=== PATIENT | female | born 1985 | race American Indian/Alaskan Native ===

== ENCOUNTER 2017-04-22 20:43 | Emergency (ER) | payer MEDICAID ==
[2017-04-22 20:53] VITALS: BP 114/85
[2017-04-22 21:37] LABS: Basophils % (Auto) 0.5 % (0.0-1.8); Eosinophils % (Auto) 6.5 % (0.0-4.3); Hemoglobin 12.9 gm/dl (10.1-14.3); Mean Corpuscular HGB Conc 34 % (30-34); Mean Corpuscular Hemoglobin 31 pg (28-32); Mean Corpuscular Volume 90 fl (79-97); Platelet Count 372 K/mm3 (140-440); Red Cell Distribution Width 13.4 % (13.2-15.2); White Blood Count 6.8 K/mm3 (4.5-11.0)
== END 2017-04-23 00:30 | disposition left against medical advice (07) ==
LOC: ED 20:43
DX: N93.9 Abnormal uterine and vaginal bleeding, unspecified (principal); Z53.21 Procedure and treatment not carried out due to patient leaving prior to being seen by health care provider
CPT/HCPCS: 36415; 84702; 85025; 86850; 86900; 86901

== ENCOUNTER 2017-04-23 20:45 | Emergency (ER) | payer SELFPAY ==
[2017-04-23 21:47] LABS: Basophils % (Auto) 0.6 % (0.0-1.8); Eosinophils % (Auto) 6.8 % (0.0-4.3); Hematocrit 36.5 % (30.3-42.9); Hemoglobin 12.3 gm/dl (10.1-14.3); Mean Corpuscular HGB Conc 34 % (30-34); Mean Corpuscular Hemoglobin 30 pg (28-32); Mean Corpuscular Volume 90 fl (79-97); Platelet Count 363 K/mm3 (140-440); Red Blood Count 4.08 M/mm3 (3.65-5.03); Red Cell Distribution Width 13.4 % (13.2-15.2); White Blood Count 6.5 K/mm3 (4.5-11.0)
--- NOTE | 2017-04-24 10:51 | Emergency Department Report ---
ED Female HPI - General Chief complaint: Vaginal Bleeding Stated complaint: VAGINAL BLEEDING Time Seen by Provider: 04/24/17 10:50 Source: patient, RN notes reviewed Mode of arrival: Ambulatory Limitations: No Limitations - History of Present Illness Initial comments: This is a 31-year-old female who is previously unknown to this provider, she is 7, para 2, last menstrual period is March 22. Patient seen at this hospital a few days ago for vaginal bleeding, quantitative hCG was 9, patient eloped. Patient then presents to the ER again with a complaint of spotting, cramping, vaginal bleeding. Denies headache, neck pain, chest pain, shortness of breath, urinary symptoms. Her symptoms do not radiate anywhere, they do not have exacerbating or relieving factors. MD Complaint: vaginal bleeding -: Gradual, days(s) Location: suprapubic Radiation: non-radiating Severity: mild Quality: cramping Consistency: intermittent Improves with: none Worsens with: none Are you Now?: Yes Associated Symptoms: vaginal bleeding. denies: vaginal discharge, nausea/ vomiting, fever/chills, dysuria, shortness of breath, syncope, weakness - Related Data Sexually active: Yes Previous Rx's Medication Instructions Recorded Last Taken Type Nitrofurantoin [place]/M-Cryst 100 mg PO Q12HR #14 capsule 03/11/14 Unknown Rx [Macrobid] Ondansetron [Zofran Odt] 4 mg PO Q6H #10 tab.rapdis 03/11/14 Unknown Rx Allergies Allergy/AdvReac Type Severity Reaction Status Date / Time No Known Allergies Allergy Verified 04/23/17 21:05 ED Review of Systems ROS: Stated complaint: VAGINAL BLEEDING Other details as noted in HPI Constitutional: denies: fever Eyes: denies: vision change ENT: denies: epistaxis Respiratory: denies: cough Cardiovascular: denies: chest pain Gastrointestinal: denies: abdominal pain Genitourinary: abnormal menses Musculoskeletal: denies: back pain Skin: denies: lesions Neurological: denies: headache Psychiatric: anxiety ED Past Medical Hx - Past Medical History Previous Medical History?: No - Surgical History Past Surgical History?: No - Social History Smoking Status: Never Smoker Substance Use Type: Alcohol - Medications Home Medications: Home Medications Medication Instructions Recorded Confirmed Last Taken Type Nitrofurantoin [place]/M-Cryst 100 mg PO Q12HR #14 capsule 03/11/14 Unknown Rx [Macrobid] Ondansetron [Zofran Odt] 4 mg PO Q6H #10 tab.rapdis 03/11/14 Unknown Rx ED Physical Exam - General Limitations: No Limitations General appearance: alert, in no apparent distress - Head Head exam: Present: atraumatic, normocephalic - Eye Eye exam: Present: normal appearance, EOMI. Absent: nystagmus - ENT ENT exam: Present: normal exam, normal orophraynx, mucous membranes moist, normal external ear exam - Neck Neck exam: Present: normal inspection, full ROM - Respiratory Respiratory exam: Present: normal lung sounds bilaterally. Absent: respiratory distress - Cardiovascular Cardiovascular Exam: Present: regular rate, normal rhythm, normal heart sounds. Absent: systolic murmur, diastolic murmur, rubs, gallop - GI/Abdominal GI/Abdominal exam: Present: soft, normal bowel sounds. Absent: distended, tenderness, guarding, rebound, rigid, pulsatile mass - Extremities Exam Extremities exam: Present: normal inspection, full ROM, normal capillary refill. Absent: pedal edema, joint swelling, calf tenderness - Back Exam Back exam: Present: normal inspection, full ROM. Absent: tenderness, CVA tenderness (R), paraspinal tenderness, vertebral tenderness - Neurological Exam Neurological exam: Present: alert, oriented X3, CN II-XII intact, other ( Extraocular movements intact. Tongue midline. No facial droop. Facial sensation intact to light touch in the V1, V2, V3 distribution bilaterally. 5 and 5 strength in 4 extremities.. Sensation is intact to light touch in 4 extremities.). Absent: motor sensory deficit - Psychiatric Psychiatric exam: Present: normal affect, normal mood - Skin Skin exam: Present: warm, dry, intact, normal color. Absent: rash ED Course Vital Signs 04/23/17 04/24/17 04/24/17 21:05 01:37 09:58 Temperature 99.2 F 98.5 F Pulse Rate 98 H 89 Respiratory 18 16 Rate Blood Pressure 113/71 114/75 120/73 O2 Sat by Pulse 99 100 Oximetry 04/24/17 04/24/17 10:00 10:30 Temperature Pulse Rate 92 H 88 Respiratory 18 18 Rate Blood Pressure 112/73 104/73 O2 Sat by Pulse 100 99 Oximetry - Reevaluation(s) Reevaluation #1: 04/24/17 12:43 Differential diagnosis, including without limited to: Urinary tract infection, miscarriage, temperature conception, ectopic Assessment and plan: 31-year-old female who is with vaginal bleeding, quantitative hCG a few days ago was 9, today it is 3, history and physical most likely suggestive of miscarriage. Pelvic ultrasound pending, Rh+, does not require RhoGAM, urinalysis pending at this time. Reevaluation #2: 04/24/17 12:54 As expected, urinalysis not consistent with urinary tract infection, and pelvic ultrasound physiologic with no evidence of ectopic or retained product of conception. Patient declined a gynecologic examination, she will follow up with outpatient gynecology for this. ED Medical Decision Making - Lab Data Result diagrams: 04/23/17 21:23 Vital Signs 04/23/17 04/24/17 04/24/17 21:05 01:37 09:58 Temperature 99.2 F 98.5 F Pulse Rate 98 H 89 Respiratory 18 16 Rate Blood Pressure 113/71 114/75 120/73 O2 Sat by Pulse 99 100 Oximetry 04/24/17 04/24/17 10:00 10:30 Temperature Pulse Rate 92 H 88 Respiratory 18 18 Rate Blood Pressure 112/73 104/73 O2 Sat by Pulse 100 99 Oximetry Lab Results 04/23/17 04/23/17 04/23/17 Range/Units 21:23 21:27 21:30 WBC 6.5 (4.5-11.0) K/mm3 RBC 4.08 (3.65-5.03) M/mm3 Hgb 12.3 (10.1-14.3) gm/dl Hct 36.5 (30.3-42.9) % MCV 90 (79-97) fl MCH 30 (28-32) pg MCHC 34 (30-34) % RDW 13.4 (13.2-15.2) % Plt Count 363 (140-440) K/mm3 Lymph % (Auto) 41.0 H (13.4-35.0) % [place] % (Auto) 6.8 (0.0-7.3) % Eos % (Auto) 6.8 H (0.0-4.3) % Baso % (Auto) 0.6 (0.0-1.8) % Lymph # 2.7 (1.2-5.4) K/mm3 [place] # 0.4 (0.0-0.8) K/mm3 Eos # 0.4 (0.0-0.4) K/mm3 Baso # 0.0 (0.0-0.1) K/mm3 Seg Neutrophils % 44.8 (40.0-70.0) % Seg Neutrophils # 2.9 (1.8-7.7) K/mm3 HCG, Quant 3.59 (0-4) mIU/mL Blood Type O POSITIVE Antibody Screen Negative - Radiology Data Radiology results: pending [facility] [address] [place] [address] Ultrasound Report Signed Patient: YASMINE HINKLE MR#: [id number] : 1985 Acct:[id number] Age/Sex: 31 / F ADM Date: 04/23/17 Loc: ED Attending Dr: Ordering Physician: CHUY LAMAS MD Date of Service: 04/24/17 Procedure(s): US transvaginal Accession Number(s): [id number] cc: CHUY LAMAS MD ULTRASOUND PELVIS COMPLETE - TRANSABDOMINAL AND TRANSVAGINAL: INDICATION: Vaginal bleeding, miscarriage. Evaluate for retained products of conception. COMPARISON: None similar. FINDINGS: Transabdominal and transvaginal pelvic sonography demonstrates a 9.5 x 4.6 x 6.8 cm homogenous, anteverted uterus. Endometrial thickness of 0.4 cm toward the fundus, endovaginal image 5. Small, 6 mm nabothian cyst. No significant free fluid. Right ovary is 4.4 x 1.8 x 3.5 cm while the left ovary is 2.6 x 1.6 x 3.3 cm. Small bilateral physiologic follicles measuring up to approximately 8 mm noted. CONCLUSION: Physiologic pelvic sonogram, as described. Thank you for the opportunity to participate in this patient's care. Transcribed By: RS Dictated By: MARIE DHALIWAL MD Electronically Authenticated By: MARIE DHALIWAL MD Signed Date/Time: 04/24/17 1240 Critical care attestation.: If time is entered above; I have spent that time in minutes in the direct care of this critically ill patient, excluding procedure time. ED Disposition Clinical Impression: Miscarriage Disposition: DC-01 TO HOME OR SELFCARE Is pt being admited?: No Does the pt Need Aspirin: No Condition: Good Instructions: Spontaneous Miscarriage (ED) Additional Instructions: Rest and avoid heavy lifting. Avoid strenuous physical activity. Follow-up with a icer hand within the next month. Return to the ER right away with new pain, worsening pain, migration of pain, fevers, chills, lethargy, irritability, projectile vomiting, change in mental status, confusion, inability to tolerate liquid feeds. Referrals: [facility] [Other] - 3-5 Days [facility] [Provider Group] - 3-5 Days [facility] [Provider Group] - 3-5 Days [facility] [Provider Group] - 3-5 Days
[2017-04-24 12:11] VITALS: BP 104/73
[2017-04-24 12:44] LABS: Bacteria,Urine 1+ /HPF (Negative); Bilirubin,Urine NEG (Negative); Blood,Urine LG (Negative); Ketones,Urine NEG (Negative); Leukocyte Esterase,Urine TR (Negative); Mucus,Urine 1+ /HPF; Nitrite,Urine NEG (Negative); Protein,Urine <15 mg/dL mg/dL (Negative); Urobilinogen,Urine < 2.0 mg/dL (<2.0)
--- NOTE | 2017-04-24 12:46 | Ultrasound Report ---
ULTRASOUND PELVIS COMPLETE - TRANSABDOMINAL AND TRANSVAGINAL: INDICATION: Vaginal bleeding, miscarriage. Evaluate for retained products of conception. COMPARISON: None similar. FINDINGS: Transabdominal and transvaginal pelvic sonography demonstrates a 9.5 x 4.6 x 6.8 cm homogenous, anteverted uterus. Endometrial thickness of 0.4 cm toward the fundus, endovaginal image 5. Small, 6 mm nabothian cyst. No significant free fluid. Right ovary is 4.4 x 1.8 x 3.5 cm while the left ovary is 2.6 x 1.6 x 3.3 cm. Small bilateral physiologic follicles measuring up to approximately 8 mm noted. CONCLUSION: Physiologic pelvic sonogram, as described. Thank you for the opportunity to participate in this patient's care.
[2017-04-24 12:53] LABS: RBC,Urine > 182.0 /HPF (0.0-6.0)
== END 2017-04-24 13:02 | disposition home or self-care (01) ==
LOC: ED 20:45
DX: O20.0 Threatened abortion (principal); Z3A.00 Weeks of gestation of pregnancy not specified
CPT/HCPCS: 36415; 76830; 76856; 81001; 84702; 85025; 86850; 86900; 86901; 87086

== ENCOUNTER 2017-06-19 08:15 | Emergency (ER) | payer MEDICAID ==
[2017-06-19 09:29] LABS: Bacteria,Urine 1+ /HPF (Negative); Bilirubin,Urine NEG (Negative); Blood,Urine NEG (Negative); Color,Urine Yellow (Yellow); Mucus,Urine 3+ /HPF; Nitrite,Urine NEG (Negative); Protein,Urine <15 mg/dL mg/dL (Negative); Urobilinogen,Urine < 2.0 mg/dL (<2.0)
[2017-06-19 10:06] LABS: Basophils % (Auto) 0.5 % (0.0-1.8); Eosinophils # (Auto) 0.4 K/mm3 (0.0-0.4); Eosinophils % (Auto) 4.9 % (0.0-4.3); Hematocrit 34.9 % (30.3-42.9); Lymphocytes # (Auto) 1.9 K/mm3 (1.2-5.4); Lymphocytes % (Auto) 26.6 % (13.4-35.0); Mean Corpuscular HGB Conc 34 % (30-34); Mean Corpuscular Hemoglobin 31 pg (28-32); Mean Corpuscular Volume 89 fl (79-97); Monocytes # (Auto) 0.6 K/mm3 (0.0-0.8); Monocytes % (Auto) 7.8 % (0.0-7.3); Platelet Count 315 K/mm3 (140-440); Red Cell Distribution Width 12.9 % (13.2-15.2)
[2017-06-19 10:16] LABS: Alanine Aminotransferase 13 units/L (7-56); Albumin 4.3 g/dL (3.9-5); BUN/Creatinine Ratio 15; Blood Urea Nitrogen 6 mg/dL (7-17); Calcium 8.6 mg/dL (8.4-10.2); Hemolysis Index 15
[2017-06-19] MEDS ORDERED: NACL 0.9% 1000 ML 1,000 ML IV ONE (12:55)
[2017-06-19] MEDS ORDERED: ZOFRAN IV ONE (12:55)
--- NOTE | 2017-06-19 12:57 | Emergency Department Report ---
Chief Complaint: Abdominal Pain Stated Complaint: FLU LIKE SYMPTOMS - HPI History of Present Illness: 31 yo female 9 weeks TOBI 01/26/2018 desires IV hydration. Evaluated by OB for nausea/vomiting. Metoclopramide prescribed by OB on Friday without any relief. Patient has mild FABIAN and lightheadness. She feels dehydrated. Mild hyponatremia and hypochloremia noted. IV hydration ordered. - Exam Vital Signs: Vital Signs 06/19/17 08:52 Temperature 98.7 F Pulse Rate 81 Respiratory 16 Rate Blood Pressure 101/65 O2 Sat by Pulse 100 Oximetry MSE screening note: Focused history and physical exam performed. Due to findings the following was ordered: ED Medical Decision Making - Lab Data Result diagrams: 06/19/17 09:40 06/19/17 09:40 ED Disposition for MSE Condition: Stable Instructions: Abdominal Pain (ED) Referrals: OCTAVIA NAVARRETE III, BELLA-NISHA [Primary Care Provider] - 3-5 Days
--- NOTE | 2017-06-19 13:30 | Emergency Department Report ---
ED Abdominal Pain HPI - General Chief Complaint: Abdominal Pain Stated Complaint: FLU LIKE SYMPTOMS Time Seen by Provider: 06/19/17 12:55 Source: patient Mode of arrival: Ambulatory Limitations: No Limitations - History of Present Illness Initial Comments: 31 yo female 9 weeks TOBI 01/26/2018 desires IV hydration. Evaluated by OB for nausea/vomiting. Metoclopramide prescribed by OB on Friday without any relief. Patient has mild FABIAN and lightheadness. She feels dehydrated. pt denies abdominal pain no cramping moderate nausea MD Complaint: flank pain Onset/Timin -: week(s) Location: R flank Radiation: none Migration to: no migration Severity: moderate Consistency: intermittent Improves With: nothing Worsens With: nothing Associated Symptoms: nausea, vomiting. denies: diarrhea, fever, chills, constipation, dysuria, hematemesis, hematochezia, melena, hematuria, anorexia, syncope - Related Data LMP (females 10-50): 3 months Previous Rx's Medication Instructions Recorded Last Taken Type Nitrofurantoin [place]/M-Cryst 100 mg PO Q12HR #14 capsule 03/11/14 Unknown Rx [Macrobid] Cephalexin [Keflex] 500 mg PO BID #14 capsule 06/19/17 Unknown Rx Ondansetron [Zofran ODT TAB] 4 mg PO Q6H #10 tab.rapdis 06/19/17 Unknown Rx Allergies Allergy/AdvReac Type Severity Reaction Status Date / Time No Known Allergies Allergy Verified 04/23/17 21:05 ED Review of Systems ROS: Stated complaint: FLU LIKE SYMPTOMS Other details as noted in HPI Constitutional: denies: chills, fever Eyes: denies: eye pain, eye discharge, vision change ENT: denies: ear pain, throat pain Respiratory: denies: cough, shortness of breath, wheezing Cardiovascular: denies: chest pain, palpitations Endocrine: no symptoms reported Gastrointestinal: denies: abdominal pain, nausea, diarrhea, constipation, hematemesis, melena, hematochezia Genitourinary: frequency. denies: urgency, dysuria, hematuria, discharge, dyspareunia Musculoskeletal: denies: back pain, joint swelling, arthralgia Skin: denies: rash, lesions Neurological: denies: headache, weakness, paresthesias Psychiatric: denies: anxiety, depression Hematological/Lymphatic: denies: easy bleeding, easy bruising ED Past Medical Hx - Past Medical History Previous Medical History?: No - Surgical History Past Surgical History?: No - Social History Smoking Status: Never Smoker Substance Use Type: None - Medications Home Medications: Home Medications Medication Instructions Recorded Confirmed Last Taken Type Nitrofurantoin [place]/M-Cryst 100 mg PO Q12HR #14 capsule 03/11/14 Unknown Rx [Macrobid] Cephalexin [Keflex] 500 mg PO BID #14 capsule 06/19/17 Unknown Rx Ondansetron [Zofran ODT TAB] 4 mg PO Q6H #10 tab.rapdis 06/19/17 Unknown Rx ED Physical Exam - General Limitations: No Limitations General appearance: alert, in no apparent distress - Head Head exam: Present: atraumatic, normocephalic - Eye Eye exam: Present: normal appearance - ENT ENT exam: Present: mucous membranes moist - Neck Neck exam: Present: normal inspection, full ROM. Absent: tenderness, lymphadenopathy, thyromegaly - Respiratory Respiratory exam: Present: normal lung sounds bilaterally. Absent: respiratory distress, wheezes, rhonchi, chest wall tenderness - Cardiovascular Cardiovascular Exam: Present: regular rate, normal rhythm. Absent: systolic murmur, diastolic murmur, rubs, gallop - GI/Abdominal GI/Abdominal exam: Present: soft, normal bowel sounds. Absent: distended, tenderness, guarding, rebound, rigid, organomegaly, mass, bruit, hernia - Rectal Rectal exam: Present: deferred - Extremities Exam Extremities exam: Present: normal inspection, full ROM, normal capillary refill. Absent: tenderness, pedal edema, joint swelling, calf tenderness - Back Exam Back exam: Present: normal inspection, full ROM, CVA tenderness (R). Absent: CVA tenderness (L), muscle spasm, paraspinal tenderness, vertebral tenderness, rash noted - Neurological Exam Neurological exam: Present: alert, oriented X3, CN II-XII intact, normal gait, reflexes normal - Psychiatric Psychiatric exam: Present: normal affect, normal mood - Skin Skin exam: Present: warm, dry, intact, normal color. Absent: rash ED Course Vital Signs 06/19/17 08:52 Temperature 98.7 F Pulse Rate 81 Respiratory 16 Rate Blood Pressure 101/65 O2 Sat by Pulse 100 Oximetry ED Medical Decision Making - Lab Data Result diagrams: 06/19/17 09:40 06/19/17 09:40 Laboratory Tests 06/19/17 06/19/17 06/19/17 09:08 09:40 09:40 WBC 7.3 RBC 3.90 Hgb 12.0 Hct 34.9 MCV 89 MCH 31 MCHC 34 RDW 12.9 L Plt Count 315 Lymph % (Auto) 26.6 [place] % (Auto) 7.8 H Eos % (Auto) 4.9 H Baso % (Auto) 0.5 Lymph # 1.9 [place] # 0.6 Eos # 0.4 Baso # 0.0 Seg Neutrophils % 60.2 Seg Neutrophils # 4.4 Sodium 134 L Potassium 3.9 Chloride 97.2 L Carbon Dioxide 22 Anion Gap 19 BUN 6 L Creatinine 0.4 L Estimated GFR > 60 BUN/Creatinine Ratio 15 Glucose 86 Calcium 8.6 Total Bilirubin 1.10 AST 15 ALT 13 Alkaline Phosphatase 49 Total Protein 7.3 Albumin 4.3 Albumin/Globulin Ratio 1.4 HCG, Quant Urine Color Yellow Urine Turbidity Clear Urine pH 6.0 Ur Specific [place] 1.016 Urine Protein <15 mg/dl Urine Glucose (UA) Neg Urine Ketones Tr Urine Blood Neg Urine Nitrite Neg Urine Bilirubin Neg Urine Urobilinogen < 2.0 Ur Leukocyte Esterase Mod Urine WBC (Auto) 3.0 Urine RBC (Auto) 3.0 U Epithel Cells (Auto) 10.0 Urine Bacteria (Auto) 1+ Urine Mucus 3+ 06/19/17 09:40 WBC RBC Hgb Hct MCV MCH MCHC RDW Plt Count Lymph % (Auto) [place] % (Auto) Eos % (Auto) Baso % (Auto) Lymph # [place] # Eos # Baso # Seg Neutrophils % Seg Neutrophils # Sodium Potassium Chloride Carbon Dioxide Anion Gap BUN Creatinine Estimated GFR BUN/Creatinine Ratio Glucose Calcium Total Bilirubin AST ALT Alkaline Phosphatase Total Protein Albumin Albumin/Globulin Ratio HCG, Quant 09799 H Urine Color Urine Turbidity Urine pH Ur Specific [place] Urine Protein Urine Glucose (UA) Urine Ketones Urine Blood Urine Nitrite Urine Bilirubin Urine Urobilinogen Ur Leukocyte Esterase Urine WBC (Auto) Urine RBC (Auto) U Epithel Cells (Auto) Urine Bacteria (Auto) Urine Mucus - Medical Decision Making 31 yo female 9 weeks TOBI 01/26/2018 desires IV hydration. Evaluated by OB for nausea/vomiting. Metoclopramide prescribed by OB on Friday without any relief. Patient has mild FABIAN and lightheadness. She feels dehydrated. exam: pt appears well nontoxic no n/v after zofra iv, cbc: normal ,cmp: noted, ua: pos leuk, wbc, plan: complete NS 1000 iv, Zofran 4 mg iv , pt now tolerating po intake without n/v dc to home with tx for UTI, nausea and vomiting Keflex, zofran, phenergan supp, pt will follow up with [facility] [employer] [facility] pt verbalized agreement and understanding of same. Critical care attestation.: If time is entered above; I have spent that time in minutes in the direct care of this critically ill patient, excluding procedure time. ED Disposition Clinical Impression: UTI (urinary tract infection) during Qualifiers: Trimester: first trimester Qualified Code(s): O23.41 - Unspecified infection of urinary tract in , first trimester Disposition: DC-01 TO HOME OR SELFCARE Is pt being admited?: No Does the pt Need Aspirin: No Condition: Good Instructions: Abdominal Pain (ED) Prescriptions: Cephalexin [Keflex] 500 mg PO BID #14 capsule Ondansetron [Zofran ODT TAB] 4 mg PO Q6H #10 tab.rapdis Referrals: OCTAVIA NAVARRETE III, BELLA-NISHA [Primary Care Provider] - 3-5 Days AUSTIN FONSECA MD [Staff Physician] - 3-5 Days Forms: Work/School Release Form(ED) Time of Disposition: 14:27
[2017-06-19 14:40] VITALS: BP 95/58
== END 2017-06-19 14:43 | disposition home or self-care (01) ==
LOC: ED 08:15
DX: O23.41 Unspecified infection of urinary tract in pregnancy, first trimester (principal); N39.0 Urinary tract infection, site not specified; Z3A.09 9 weeks gestation of pregnancy
CPT/HCPCS: 36415; 80053; 81001; 84702; 85025; 93005; 93010; 96361; 96374; 99283; J2405; J7030

== ENCOUNTER 2018-06-25 01:21 | Emergency (ER) | payer MEDICAID ==
--- NOTE | 2018-06-25 03:57 | Emergency Department Report ---
Addendum entered and electronically signed by ABBY BOBBY NP 06/28/18 22:40: General Limitations: No Limitations General appearance: alert, in no apparent distress - Head Head exam: Present: atraumatic, normocephalic, normal inspection - Eye Eye exam: Present: normal appearance, PERRL, EOMI Pupils: Present: normal accommodation - ENT ENT exam: Present: normal orophraynx, mucous membranes moist, TM's normal bilaterally, normal external ear exam, other - Expanded ENT Exam Expanded Ear exam: Present: normal external inspection, other (no sinus pain no tenderness no swelling no erythema no no rhinorrea) Mouth exam: Present: normal external inspection. Absent: trismus Teeth exam: Present: normal inspection Throat exam: Positive: other (uvula midline no lesions no exudate no stridor swelling ). Negative: tonsillar erythema, tonsillomegaly, tonsillar exudate, R peritonsillar mass, L peritonsillar mass - Neck Neck exam: Present: normal inspection, full ROM. Absent: tenderness, men ingismus, lymphadenopathy, thyromegaly - Expanded Neck Exam Expanded Neck exam: Absent: tenderness, midline deformity, anterior neck swelling, t hyroid mass, carotid bruit, tracheal deviation - Respiratory Respiratory exam: Present: normal lung sounds bilaterally. Absent: respiratory distress, wheezes, stridor, chest wall tenderness - Cardiovascular Cardiovascular Exam: Present: regular rate, normal rhythm, normal heart sounds. Absent: systolic murmur, diastolic murmur, rubs, gallop - GI/Abdominal GI/Abdominal exam: Present: soft, normal bowel sounds. Absent: distended, tenderness, bruit, hernia - Rectal Rectal exam: Present: deferred - External exam: Present: other (deferred per patient ) - Extremities Exam Extremities exam: Present: normal inspection, full ROM, normal capillary refill. Absent: tenderness, pedal edema, calf tenderness - Back Exam Back exam: Present: normal inspection, full ROM. Absent: tenderness, CVA tenderness (R), CVA tenderness (L), muscle spasm, paraspinal tenderness, rash noted - Neurological Exam Neurological exam: Present: alert, oriented X3, CN II-XII intact, normal gait, reflexes normal. Absent: motor sensory deficit - Expanded Neurological Exam Expanded Neurological exam: Absent: ataxia Patient oriented to: Present: person, place, time Speech: Present: fluid speech Cranial nerves: EOM's Intact: Normal, Gag Reflex: Normal, Tongue Deviation: No rmal, Nystagmus: Normal, Facial Sensation: Normal, Facial Palsy with Forehead Movement: Normal, Facial Palsy without Forehead Movement: Normal Cerebellar function: Finger to Nose: Normal, Heel to Mcfarland: Normal, Romberg: Normal Upper motor neuron: Gulshan Neglect: Normal, Pronator Drift: Normal, Babinski Sign: Normal, Sensory Extinction: Normal Sensory exam: Upper Extremity Light Touch: Normal, Upper Extremity Pin Prick: Normal, Upper Extremity Temperature: Normal, UE 2 Point Discrimination: Normal, Lower Extremity Light Touch: Normal, Lower Extremity Pin Prick: Normal, Lower Extremity Temperature: Normal, LE 2 Point Discrimination: Normal Motor strength exam: RUE: 5, LUE: 5, RLE: 5, LLE: 5 DTR: bicep (R): 2+, bicep (L): 2+, tricep (R): 2+, tricep (L): 2+, knee (R): 2+, knee (L): 2+, ankle (R): 2+, ankle (L): 2+ Best Eye Response (Carlitos): (4) open spontaneously Best Motor Response ([place]): (6) obeys commands Best Verbal Response ([place]): (5) oriented [place] Total: 15 - Psychiatric Psychiatric exam: Present: normal affect, normal mood - Skin Skin exam: Present: warm, dry, intact, normal color. Absent: rash ED Course Vital Signs 06/25/18 06/25/18 06/25/18 01:29 05:01 06:44 Temperature 98.0 F 98.5 F Pulse Rate 93 H 82 72 Respiratory 18 18 15 Rate Blood Pressure 97/65 Blood Pressure 106/62 [Left] O2 Sat by Pulse 99 100 99 Oximetry ED Medical Decision Making headache is resolved with medications given in ed, ENT exam is normal there is no fever no chills no n/v no vertigo no dizziness no lightheadednss no sinus swelling or pressures, nares patent no swelling no drainage, there is no photophobia , no decreased or blurred vision, no ear pain, pt has had similar headaches in past same location same duration and intensity, pt has no hx of venous sinus thrombus , however pt given strict instructions to return to ed is symptoms worsen pt verbalized agreement and understanding of discharge plan, pt is currently a/o x 3 ambulatory with steady gait , denies headache, no neuro deficits, pt to home via pov and family member, ED Disposition Disposition: DC-01 TO HOME OR SELFCARE Condition: Stable Instructions: Urinary Tract Infection in Women (ED), Acute Headache (ED) Prescriptions: Acetaminophen [Tylenol] 650 mg PO QID PRN #30 capsule PRN Reason: Headache diphenhydrAMINE [Benadryl CAP] 25 mg PO Q8HR PRN #30 capsule PRN Reason: Headache Metoclopramide [Reglan] 10 mg PO TID PRN #30 tab PRN Reason: Headache Referrals: OCTAVIA NAVARRETE III, [facility] [Primary Care Provider] - 3-5 Days Forms: Work/School Release Form(ED) Original Note: Vomiting/Diarrhea - HPI Duration: 1 Day Severity: moderate Nausea/Vomiting Severity: Severe Diarrhea Severity: None Pain Severity: None Symptoms: Yes Able to Tolerate Fluids, No Watery Diarrhea, No Bloody diarrhea, No Fever, No Recent Unusual Foods, No Recent Untreated Water, No Recent use of Antibiotics, No Family w/ Similar Symptoms, No Contacts w/ Similar Symptoms, No Rash, No Hematuria, No Recent URI Symptoms Other History: This is a 32-year-old -[place] female who presents with a headache and nausea and vomiting that started around 10 AM yesterday. Patient states she has taken Tylenol with no improvement of symptoms. She is 8 weeks and followed by an DEVELOPMENT ANALYST. Last menstrual period was 05/01/2018, A4, one miscarriage and 3 abortions. Patient states she is unable to hold anything down. She denies vaginal bleeding, vaginal discharge, abdominal pain, low back pain, and chest pain. <GREER NAVARRETE - Last Filed: 06/25/18 04:40> <ABBY BOBBY - Last Filed: 06/25/18 06:27> - HPI Chief Complaint: Headache Stated Complaint: HEADACHE/EMESIS ED Review of Systems ROS: Stated complaint: HEADACHE/EMESIS Other details as noted in HPI Constitutional: denies: chills, fever Respiratory: denies: cough, shortness of breath, wheezing Cardiovascular: denies: chest pain, palpitations Gastrointestinal: nausea, vomiting. denies: abdominal pain, diarrhea Genitourinary: denies: urgency, dysuria, discharge Neurological: headache. denies: weakness, paresthesias Psychiatric: denies: anxiety, depression <GREER NAVARRETE - Last Filed: 06/25/18 04:40> ROS: Stated complaint: HEADACHE/EMESIS Other details as noted in HPI <ABBY BOBBY - Last Filed: 06/25/18 06:27> ED Past Medical Hx - Past Medical History Previous Medical History?: No - Surgical History Past Surgical History?: No - Social History Smoking Status: Former Smoker Substance Use Type: None <GREER NAVARRETE - Last Filed: 06/25/18 04:40> <ABBY BOBBY - Last Filed: 06/25/18 06:27> - Medications Home Medications: Home Medications Medication Instructions Recorded Confirmed Last Taken Type Nitrofurantoin [place]/M-Cryst 100 mg PO Q12HR #14 capsule 03/11/14 Unknown Rx [Macrobid] Cephalexin [Keflex] 500 mg PO BID #14 capsule 06/19/17 Unknown Rx Ondansetron [Zofran ODT TAB] 4 mg PO Q6H #10 tab.rapdis 06/19/17 Unknown Rx Acetaminophen [Tylenol] 650 mg PO QID PRN #30 capsule 06/25/18 Unknown Rx Metoclopramide [Reglan] 10 mg PO TID PRN #30 tab 06/25/18 Unknown Rx diphenhydrAMINE [Benadryl CAP] 25 mg PO Q8HR PRN #30 capsule 06/25/18 Unknown Rx Vomiting Diarrhea Exam - Exam General: Vital signs noted. No distress. Alert and acting appropriately. HEENT: Yes Pharyngeal Erythema (erythematous posterior pharynx, uvula midline), Yes Moist Mucous Membranes, No Pharyngeal Exudates, No Rhinorrhea, No Conjuctival Injection, No Frontal Tenderness, No Maxillary Tenderness Neck: No Adenopathy, No Rigidity Lungs: Yes Clear Lung Sounds, Yes Good Air Exchange, No Wheezes, No Stridor, No Cough, No Nasal Flaring, No Retractions, No Use of Accessory Muscles Heart exam: Regular: Yes, Murmur: No, Tachycardia: No Abdomen: Tenderness: No, Peritoneal Signs: No, Distention: No, Hyperactive Bowel sounds: No Skin exam: Rash: No, Edema: No, Normal turgor: Yes Neurologic: Alert and oriented, no deficits. Musculoskeletal: Unremarkable. <NAVARRETE,GREER CAPRICE - Last Filed: 06/25/18 04:40> - Exam General: Vital signs noted. No distress. Alert and acting appropriately. Neurologic: Alert and oriented, no deficits. Musculoskeletal: Unremarkable. <ABBY BOBBY - Last Filed: 06/25/18 06:27> ED Course Vital Signs 06/25/18 01:29 Temperature 98.0 F Pulse Rate 93 H Respiratory 18 Rate Blood Pressure 97/65 O2 Sat by Pulse 99 Oximetry <NAVARRETE,GREER CAPRICE - Last Filed: 06/25/18 04:40> Vital Signs 06/25/18 06/25/18 01:29 05:01 Temperature 98.0 F 98.5 F Pulse Rate 93 H 82 Respiratory 18 18 Rate Blood Pressure 97/65 Blood Pressure 106/62 [Left] O2 Sat by Pulse 99 100 Oximetry <ABBY BOBBY - Last Filed: 06/25/18 06:27> ED Medical Decision Making - Lab Data Result diagrams: 06/25/18 04:11 - Medical Decision Making Patient was examined by me. Vitals are normal and patient is in no acute distress. IV site initiated. Given Benadryl, Reglan, normal saline bolus by IV. Ordered CBC, CMP, and hCG quantitative. Labs are pending. Chart signed to Eliot Arguello <NAVARRETEGREER CAPRICE - Last Filed: 06/25/18 04:40> - Lab Data Result diagrams: 06/25/18 04:11 06/25/18 04:11 Labs 06/25/18 06/25/18 06/25/18 04:11 04:11 04:50 WBC 8.6 RBC 3.98 Hgb 12.3 Hct 34.9 MCV 88 MCH 31 MCHC 35 H RDW 12.8 L Plt Count 392 Sodium 135 L Potassium 3.9 Chloride 100.7 Carbon Dioxide 23 Anion Gap 15 BUN 6 L Creatinine 0.5 L Estimated GFR > 60 BUN/Creatinine Ratio 12 Glucose 101 H Calcium 8.9 Total Bilirubin 1.00 AST 20 ALT 10 Alkaline Phosphatase 43 Total Protein 6.7 Albumin 4.0 Albumin/Globulin Ratio 1.5 Urine Color Yellow Urine Turbidity Clear Urine pH 5.0 Ur Specific [place] 1.017 Urine Protein <15 mg/dl Urine Glucose (UA) Neg Urine Ketones 80 Urine Blood Neg Urine Nitrite Neg Urine Bilirubin Neg Urine Urobilinogen < 2.0 Ur Leukocyte Esterase Sm Urine WBC (Auto) 3.0 Urine RBC (Auto) 4.0 U Epithel Cells (Auto) 2.0 Urine Mucus 3+ - Medical Decision Making cmp: normal, cbc: normal, ua; sm leuk, pt is , will tx with macrobid, headache is resolve, plan dc to home with rx for macrobid, tylenol, benadryl, reglan for headache follow up with pcp and obgyn in 2-3 days pt verbalized agreement and understanding of discharge plan. pt with nad at this time. <ABBY BOBBY - Last Filed: 06/25/18 06:27> Critical care attestation.: If time is entered above; I have spent that time in minutes in the direct care of this critically ill patient, excluding procedure time. <GREER NAVARRETE - Last Filed: 06/25/18 04:40> Critical care attestation.: If time is entered above; I have spent that time in minutes in the direct care of this critically ill patient, excluding procedure time. <ABBY BOBBY - Last Filed: 06/25/18 06:27> ED Disposition <GREER NAVARRETE - Last Filed: 06/25/18 04:40> Is pt being admited?: No Does the pt Need Aspirin: No Time of Disposition: 06:27 <ABBY BOBBY - Last Filed: 06/25/18 06:27> Clinical Impression: Headache Qualifiers: Headache type: unspecified Headache chronicity pattern: unspecified pattern Intractability: not intractable Qualified Code(s): R51 - Headache UTI (urinary tract infection) Qualifiers: Urinary tract infection type: acute cystitis Hematuria presence: without hematuria Qualified Code(s): N30.00 - Acute cystitis without hematuria Disposition: DC- TO HOME OR SELFCARE Condition: Stable Instructions: Acute Headache (ED), Urinary Tract Infection in Women (ED) Prescriptions: Acetaminophen [Tylenol] 650 mg PO QID PRN #30 capsule PRN Reason: Headache diphenhydrAMINE [Benadryl CAP] 25 mg PO Q8HR PRN #30 capsule PRN Reason: Headache Metoclopramide [Reglan] 10 mg PO TID PRN #30 tab PRN Reason: Headache Referrals: OCTAVIA NAVARRETE III, [facility] [Primary Care Provider] - 3-5 Days Forms: Work/School Release Form(ED)
[2018-06-25] MEDS ORDERED: REGLAN IV ONE (04:01)
[2018-06-25] MEDS ORDERED: BENADRYL IV ONE (04:01)
[2018-06-25] MEDS ORDERED: NACL 0.9% 1000 ML 1,000 ML IV ONE (04:01)
[2018-06-25 04:27] LABS: Hematocrit 34.9 % (30.3-42.9); Hemoglobin 12.3 gm/dl (10.1-14.3); Mean Corpuscular HGB Conc 35 % (30-34); Mean Corpuscular Volume 88 fl (79-97); Platelet Count 392 K/mm3 (140-440); Red Blood Count 3.98 M/mm3 (3.65-5.03); Red Cell Distribution Width 12.8 % (13.2-15.2)
[2018-06-25 05:02] VITALS: BP 106/62
[2018-06-25 05:10] LABS: Alanine Aminotransferase 10 units/L (7-56); BUN/Creatinine Ratio 12; Blood Urea Nitrogen 6 mg/dL (7-17); Calcium 8.9 mg/dL (8.4-10.2); Hemolysis Index 7
[2018-06-25 05:16] LABS: Bilirubin,Urine NEG (Negative); Blood,Urine NEG (Negative); Color,Urine Yellow (Yellow); Mucus,Urine 3+ /HPF; Protein,Urine <15 mg/dL mg/dL (Negative); Urobilinogen,Urine < 2.0 mg/dL (<2.0)
--- NOTE | 2018-06-28 22:35 | Emergency Department Report ---
ED Headache HPI - General Chief Complaint: Headache Stated Complaint: HEADACHE/EMESIS - History of Present Illness Allergies/Adverse Reactions: Allergies No Known Allergies Allergy (Verified 04/23/17 21:05) Home Medications: Ambulatory Orders Nitrofurantoin [place]/M-Cryst [Macrobid] 100 mg PO Q12HR #14 capsule 03/11/14 Cephalexin [Keflex] 500 mg PO BID #14 capsule 06/19/17 Ondansetron [Zofran ODT TAB] 4 mg PO Q6H #10 tab.rapdis 06/19/17 Acetaminophen [Tylenol] 650 mg PO QID PRN #30 capsule 06/25/18 Metoclopramide [Reglan] 10 mg PO TID PRN #30 tab 06/25/18 diphenhydrAMINE [Benadryl CAP] 25 mg PO Q8HR PRN #30 capsule 06/25/18 ED Review of Systems ROS: Stated complaint: HEADACHE/EMESIS Other details as noted in HPI Constitutional: denies: chills, fever Respiratory: denies: cough, shortness of breath, wheezing Cardiovascular: denies: chest pain, palpitations Gastrointestinal: nausea, vomiting. denies: abdominal pain, diarrhea Genitourinary: denies: urgency, dysuria, discharge Neurological: headache. denies: weakness, paresthesias Psychiatric: denies: anxiety, depression ED Past Medical Hx - Past Medical History Previous Medical History?: No - Surgical History Past Surgical History?: No - Social History Smoking Status: Former Smoker Substance Use Type: None - Medications Home Medications: Home Medications Medication Instructions Recorded Confirmed Last Taken Type Nitrofurantoin [place]/M-Cryst 100 mg PO Q12HR #14 capsule 03/11/14 Unknown Rx [Macrobid] Cephalexin [Keflex] 500 mg PO BID #14 capsule 06/19/17 Unknown Rx Ondansetron [Zofran ODT TAB] 4 mg PO Q6H #10 tab.rapdis 06/19/17 Unknown Rx Acetaminophen [Tylenol] 650 mg PO QID PRN #30 capsule 06/25/18 Unknown Rx Metoclopramide [Reglan] 10 mg PO TID PRN #30 tab 06/25/18 Unknown Rx diphenhydrAMINE [Benadryl CAP] 25 mg PO Q8HR PRN #30 capsule 06/25/18 Unknown Rx ED Physical Exam - General Limitations: No Limitations General appearance: alert, in no apparent distress - Head Head exam: Present: atraumatic, normocephalic, normal inspection - Eye Eye exam: Present: normal appearance, PERRL, EOMI Pupils: Present: normal accommodation - ENT ENT exam: Present: normal orophraynx, mucous membranes moist, TM's normal bilaterally, normal external ear exam, other - Expanded ENT Exam Expanded Ear exam: Present: normal external inspection, other (no sinus pain no tenderness no swelling no erythema no no rhinorrea) Mouth exam: Present: normal external inspection. Absent: trismus Teeth exam: Present: normal inspection Throat exam: Positive: other (uvula midline no lesions no exudate no stridor swelling ). Negative: tonsillar erythema, tonsillomegaly, tonsillar exudate, R peritonsillar mass, L peritonsillar mass - Neck Neck exam: Present: normal inspection, full ROM. Absent: tenderness, meningismus, lymphadenopathy, thyromegaly - Expanded Neck Exam Expanded Neck exam: Absent: tenderness, midline deformity, anterior neck swelling, thyroid mass, carotid bruit, tracheal deviation - Respiratory Respiratory exam: Present: normal lung sounds bilaterally. Absent: respiratory distress, wheezes, stridor, chest wall tenderness - Cardiovascular Cardiovascular Exam: Present: regular rate, normal rhythm, normal heart sounds. Absent: systolic murmur, diastolic murmur, rubs, gallop - GI/Abdominal GI/Abdominal exam: Present: soft, normal bowel sounds. Absent: distended, tenderness, bruit, hernia - Rectal Rectal exam: Present: deferred - External exam: Present: other (deferred per patient ) - Extremities Exam Extremities exam: Present: normal inspection, full ROM, normal capillary refill. Absent: tenderness, pedal edema, calf tenderness - Back Exam Back exam: Present: normal inspection, full ROM. Absent: tenderness, CVA tenderness (R), CVA tenderness (L), muscle spasm, paraspinal tenderness, rash noted - Neurological Exam Neurological exam: Present: alert, oriented X3, CN II-XII intact, normal gait, reflexes normal. Absent: motor sensory deficit - Expanded Neurological Exam Expanded Neurological exam: Absent: ataxia Patient oriented to: Present: person, place, time Speech: Present: fluid speech Cranial nerves: EOM's Intact: Normal, Gag Reflex: Normal, Tongue Deviation: Normal, Nystagmus: Normal, Facial Sensation: Normal, Facial Palsy with Forehead Movement: Normal, Facial Palsy without Forehead Movement: Normal Cerebellar function: Finger to Nose: Normal, Heel to Mcfar[place]: Normal, Romberg: Normal Upper motor neuron: Gulshan Neglect: Normal, Pronator Drift: Normal, Babinski Sign: Normal, Sensory Extinction: Normal Sensory exam: Upper Extremity Light Touch: Normal, Upper Extremity Pin Prick: Normal, Upper Extremity Temperature: Normal, UE 2 Point Discrimination: Normal, Lower Extremity Light Touch: Normal, Lower Extremity Pin Prick: Normal, Lower Extremity Temperature: Normal, LE 2 Point Discrimination: Normal Motor strength exam: RUE: 5, LUE: 5, RLE: 5, LLE: 5 DTR: bicep (R): 2+, bicep (L): 2+, tricep (R): 2+, tricep (L): 2+, knee (R): 2+, knee (L): 2+, ankle (R): 2+, ankle (L): 2+ Best Eye Response (Carlitos): (4) open spontaneously Best Motor Response (Carlitos): (6) obeys commands Best Verbal Response (Carlitos): (5) oriented [place] Total: 15 - Psychiatric Psychiatric exam: Present: normal affect, normal mood - Skin Skin exam: Present: warm, dry, intact, normal color. Absent: rash ED Course Vital Signs 06/25/18 06/25/18 06/25/18 01:29 05:01 06:44 Temperature 98.0 F 98.5 F Pulse Rate 93 H 82 72 Respiratory 18 18 15 Rate Blood Pressure 97/65 Blood Pressure 106/62 [Left] O2 Sat by Pulse 99 100 99 Oximetry ED Medical Decision Making - Lab Data Result diagrams: 06/25/18 04:11 06/25/18 04:11 Critical care attestation.: If time is entered above; I have spent that time in minutes in the direct care of this critically ill patient, excluding procedure time. ED Disposition Disposition: -01 TO HOME OR SELFCARE Condition: Stable Instructions: Urinary Tract Infection in Women (ED), Acute Headache (ED) Prescriptions: Acetaminophen [Tylenol] 650 mg PO QID PRN #30 capsule PRN Reason: Headache diphenhydrAMINE [Benadryl CAP] 25 mg PO Q8HR PRN #30 capsule PRN Reason: Headache Metoclopramide [Reglan] 10 mg PO TID PRN #30 tab PRN Reason: Headache Referrals: OCTAVIA NAVARRETE III, [facility] [Primary Care Provider] - 3-5 Days Forms: Work/School Release Form(ED)
== END 2018-06-25 06:44 | disposition home or self-care (01) ==
LOC: ED 01:21
DX: O23.11 Infections of bladder in pregnancy, first trimester (principal); Z3A.08 8 weeks gestation of pregnancy
CPT/HCPCS: 36415; 80053; 81001; 84702; 85027; 96361; 96374; 96375; 99283; J1200; J2765; J7030

== ENCOUNTER 2020-08-30 20:09 | Outpatient (CLI) | payer MEDICAID ==
[2020-08-30] MEDS ORDERED: LACTATED RINGERS 1,000 ML ONE (22:31)
[2020-08-30] MEDS ORDERED: LACTATED RINGERS 1,000 ML IV ONE (22:59)
[2020-08-30 23:49] VITALS: BP 94/58
[2020-08-31 00:01] LABS: Bacteria,Urine 2+ /HPF (Negative); Bilirubin,Urine NEG (Negative); Blood,Urine NEG (Negative); Color,Urine Straw (Yellow); Protein,Urine <15 mg/dL mg/dL (Negative); Urobilinogen,Urine < 2.0 mg/dL (<2.0)
== END 2020-08-30 23:52 | disposition home or self-care (01) ==
LOC: TRG 20:09 → APU 20:18 → TRG 23:52
PROVIDERS: ATTEND Obstetrics & Gynecology
DX: O47.03 False labor before 37 completed weeks of gestation, third trimester (principal); Z3A.32 32 weeks gestation of pregnancy
CPT/HCPCS: 81001

== ENCOUNTER 2020-10-27 12:27 | Inpatient (IN) | payer MEDICAID ==
[2020-10-27] MEDS ORDERED: MINERAL OIL 30 ML ORAL LIQD PO PRN (16:48)
[2020-10-27] MEDS ORDERED: TERBUTALINE 1 MG/1 ML INJ SUB-Q PRN (16:48)
[2020-10-27] MEDS ORDERED: ePHEDrine SULFATE 50 MG/1 ML INJ IV PRN (16:48)
[2020-10-27] MEDS ORDERED: fentaNYL 100 MCG/2 ML INJ IV PRN (16:48)
[2020-10-27] MEDS ORDERED: LIDOCAINE (2%) 20 MG/1 ML VIAL 20 ML MDV INFILTRATI ONE (16:48)
[2020-10-27] MEDS ORDERED: OXYTOCIN DRIP 30 UNITS/500 ML BAG IV SCH ×4 (17:00→22:00)
[2020-10-27] MEDS ORDERED: LACTATED RINGERS 1,000 ML IV SCH ×2 (17:00→18:30)
[2020-10-27] MEDS ORDERED: AMPICILLIN/NS 2 GM/100 ML 2 GM/100 ML BAG IV ONE (17:00)
[2020-10-27] MEDS ORDERED: valACYclovir 500 MG TAB PO SCH (17:19)
--- NOTE | 2020-10-27 17:19 | History and Physical Report ---
History of Present Illness Date of examination: 10/27/20 Date of admission: 10/27/2020 Chief complaint: Contractions History of present illness: 34 year old female presents to L&D with regular contractions. Patient denies LOF or VB. Patient reports active movement. Patient received care at [facility] and incomplete records are available so labs were drawn upon admission. LMP: 01/19/2020. EDC: 10/25/2020 (confirmed by 8 week US). 2 previous vaginal births (2007, 2009). 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 Incomplete labs as noted on records: RPR nonreactive, HIV negative, hepatitis C antibody nonreactive, hepatitis B surface antigen negative, chlamydia negative, gonorrhea negative, trichomonas negative, pap smear negative, varicella immune, rubella immune, hemoglobin electrophoresis AA. Patient reports vulvar itching for past 2 days. Past History Past Medical History: other (history of genital herpes (has not been taking suppressive medications during )) Past Surgical History: other (EAB) [employer] History: herpes. denies: chlamydia, gonorrhea, hepatitis B, hepatitis C, HIV, syphilis Family/Genetic History: diabetes, heart disease, hypertension, cancer Social history: lives with family, full code. denies: smoking, alcohol abuse, prescription drug abuse, IV drug use - Obstetrical History Expected Date of Delivery: 10/25/20 Actual Gestation: 40 Week(s) 2 Day(s) : 8 Para: 2 Hx # Term Pregnancies: 2 Number of Pregnancies: 0 Spontaneous Abortions: 0 Induced : 5 Number of Living Children: 2 Medications and Allergies Allergies Allergy/AdvReac Type Severity Reaction Status Date / Time No Known Allergies Allergy Verified 04/23/17 21:05 Home Medications Medication Instructions Recorded Confirmed Last Taken Type Multivitamin Tablet 1 tab PO DAILY 08/30/20 08/30/20 08/30/20 History 1900 Active Meds: Active Medications Ephedrine Sulfate (Ephedrine Sulfate 50 Mg/1 Ml Inj) 10 mg IV Q2M PRN PRN Reason: Hypotension Fentanyl (Fentanyl 100 Mcg/2 Ml Inj) 100 mcg IV Q2H PRN PRN Reason: Pain,Severe (7-10) LABOR PAIN Oxytocin/Sodium Chloride (Pitocin/Ns 30 Unit/500ml) 30 units in 500 mls @ 2 mls/hr IV TITR CHRISTEN; Protocol Lactated Ringer's (Lactated Ringers) 1,000 mls @ 125 mls/hr IV DIRECT CHRISTEN Oxytocin/Sodium Chloride (Pitocin/Ns 30 Unit/500ml) 30 units in 500 mls @ 40 mls/hr IV TITR CHRISTEN; Protocol Ampicillin Sodium (Ampicillin/Ns 2 Gm/100 Ml) 2 gm in 100 mls @ 100 mls/hr IV ONCE ONE; Protocol Stop: 10/27/20 17:47 Ampicillin Sodium (Ampicillin/Ns 1 Gm/50 Ml) 1 gm in 50 mls @ 100 mls/hr IV Q4H CHRISTEN; Protocol Lidocaine (Lidocaine (2%) 20 Mg/1 Ml Vial 20 Ml Mdv) 20 ml INFILTRATI ONCE ONE Stop: 10/27/20 16:49 Mineral Oil (Mineral Oil 30 Ml Oral Liqd) 30 ml PO QHS PRN PRN Reason: Constipation Terbutaline Sulfate (Terbutaline 1 Mg/1 Ml Inj) 0.25 mg SUB-Q ONCE PRN PRN Reason: Hyperstimulation/Hypertonicity Review of Systems All systems: negative (contractions, vulvar itching) - Vital Signs Vital signs: Vital Signs Pulse Pulse Ox 98 H 99 10/27/20 13:06 10/27/20 13:06 Temp Pulse Resp BP Pulse Ox 98.5 F 87 20 102/71 100 10/27/20 13:11 10/27/20 16:22 10/27/20 13:11 10/27/20 13:11 10/27/20 16:22 - Physical Exam Abdomen: Positive: normal appearance, soft. Negative: distention, tenderness, guarding, rigidity Genitourinary (Female): Positive: perineal/vulvar lesions Vagina: Positive: normal moisture Uterus: Positive: enlarged. Negative: tender Extremities: Negative: tenderness, edema - Obstetrical FHR: category 1 Uterine Contraction Monitor Mode: External Cervical Dilatation: 4 Cervical Effacement Percentage: 70 station: -2 Uterine Contraction Pattern: Regular Uterine Contraction Intensity: Moderate Results Result Diagrams: 10/27/20 17:00 All other labs normal. Assessment and Plan A: at 40 weeks, 2 days gestation. Labor. GBS positive. Positive herpes serology with vulvar symptoms and vulvar lesions (and has not been on suppressive medications during ). P: Admit. EFM. Consulted with Dr. Flores re: patient and possible herpes outbreak. Dr. Flores states he will come in and perform delivery. Orders put in and team notified. Discussed with patient MD recommendation for section and patient states she is in agreement with POC.
[2020-10-27 17:27] LABS: Hematocrit 33.1 % (30.3-42.9); Hemoglobin 10.8 gm/dl (10.1-14.3); Mean Corpuscular HGB Conc 33 % (30-34); Mean Corpuscular Volume 87 fl (79-97); Platelet Count 276 K/mm3 (140-440); Red Blood Count 3.78 M/mm3 (3.65-5.03); Red Cell Distribution Width 15.3 % (13.2-15.2)
[2020-10-27 18:02] LABS: Hepatitis C Virus Antibody Non-Reactive (NonReactive)
[2020-10-27] MEDS ORDERED: METOCLOPRAMIDE 10 MG/2 ML INJ IV ONE (18:18)
[2020-10-27] MEDS ORDERED: BICITRA ORAL LIQD 30ML PO ONE (18:18)
[2020-10-27] MEDS ORDERED: FAMOTIDINE 20 MG/2 ML INJ IV ONE (18:18)
--- NOTE | 2020-10-27 18:23 | Anesthesia Day of Surgery ---
Anesthesia Day of Surgery - Day of Surgery Patient Examined: Yes Patient H&P Reviewed: Yes Patient is NPO: Yes
--- NOTE | 2020-10-27 18:23 | Anesthesia Consultation ---
Anesthesia Consult and Med Hx Date of service: 10/27/20 - Airway Anesthetic Teeth Evaluation: Good ROM Head & Neck: Adequate Mental/Hyoid Distance: Adequate Mallampati Class: Class II Intubation Access Assessment: Probably Good - Pulmonary Exam CTA: Yes - Cardiac Exam Cardiac Exam: RRR - Pre-Operative Health Status ASA Pre-Surgery Classification: ASA2 Proposed Anesthetic Plan: Spinal - Pulmonary Hx Asthma: No - Cardiovascular System Hx Hypertension: No - Central Nervous System Hx Seizures: No Hx Psychiatric Problems: No - Endocrine Hx Renal Disease: No Hx Hypothyroidism: No Hx Hyperthyroidism: No - Hematic Hx Anemia: No Hx Sickle Cell Disease: No - Other Systems Hx Alcohol Use: No
[2020-10-27] MEDS ORDERED: ceFAZolin/Water 2 GM/20 ML 2 GM/20 ML SYRINGE IV NR (19:00)
[2020-10-27] MEDS ORDERED: AMPICILLIN/NS 1 GM/50 ML 1 GM/50 ML BAG IV SCH (21:00)
[2020-10-27] MEDS ORDERED: ONDANSETRON 4 MG/2 ML INJ IV PRN (21:08)
[2020-10-27] MEDS ORDERED: LANOLIN/ZINC/DIMETHICONE (LANSINOH) 7 GM TP PRN (21:08)
[2020-10-27] MEDS ORDERED: HYDROCORTISONE 25 MG RECTAL SUPP PR PRN (21:08)
[2020-10-27] MEDS ORDERED: PROMETHAZINE 25 MG RECT SUPP PR PRN (21:08)
[2020-10-27] MEDS ORDERED: WITCH HAZEL/ GLYCERIN PAD TP PRN (21:08)
[2020-10-27] MEDS ORDERED: ACETAMINOPHEN 325 MG TAB PO PRN (21:08)
[2020-10-27] MEDS ORDERED: NALOXONE 0.4 MG/1 ML INJ IV PRN (21:08)
--- NOTE | 2020-10-27 21:12 | Procedure Note ---
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 Findings: Normal uterus, tubes and ovaries. Clear fluid. No nuchal cord. Delivery of male at 2022 Weight 3744g Height 20.5 inches APGARS 8/9 EBL 800cc IVF 1800cc UOP 150cc Procedure: Patient was taken to the operating room prepped and draped in the usual sterile fashion. Pfannenstiel skin incision was made and carried down to the underlying fascia. Fascia was incised and the incision was distended bilaterally. Rectus fascia was dissected off the rectus muscle superiorly and inferiorly. Peritoneum was identified and entered. Peritoneal incision extended superiorly and inferiorly. The bladder was visualized. The bladder blade was placed. Uterine hysterotomy incision was made and extended bilaterally. The baby was delivered in the typical vertex fashion. Baby was bulb suction at delivery. The cord was cut and clamped and handed off to the team. The placenta was delivered spontaneously. The uterus was exteriorized and cleared of all clots and debris. Uterine incision was closed with a 0 Vicryl in a running locked fashion. 0 Vicryl was used to complete a second layer of the uterine incision. Good hemostasis was noted. Hemoblast was applied to the uterine incisional base to provide hemostasis. The urine was noted to be clear. Uterus, tubes, and ovaries were returned to the abdominal cavity. Bilateral gutters were cleared and the abdomen and pelvis were irrigated. Good hemostasis noted. The rectus muscle was reapproximated with 2- 0 Vicryl. Attention was directed towards the rectus fascia which was reapproximated with 0 PDS in a running fashion. The subcutaneous tissue was irrigated and reapproximated with 2-0 Vicryl in a running fashion. Skin was closed with a 4-0 Vicryl in a subcuticular fashion. The procedure was completed and the patient tolerated the procedure well. All instruments and lap counts were correct x2. - A at 1 minute: 8 at 5 minutes: 9 Gender: Male
--- NOTE | 2020-10-27 21:41 | Progress Note ---
Regional Anesthesia Block - Regional Anesthesia Block Start Time: 21:30 Stop Time: 21:35 Performed By:: FOREIGN SHEN Procedure: U/S guided bilateral tap block performed for post-operative pain requested by Dr. Flores. H&P & labs reviewed. Procedure explained, questions answered, consent obtained. Patient in the supine position with ekg, blood pressure cuff and pulse ox on and working in PACU. Timeout performed immediately before start of procedure. Probe placed in the mid-axillary line and the external oblique, internal oblique, and transverse abdominus muscles identified. Skin was cleansed with chlorahexadine 0.5% and allowed to dry. A 4" 20 G Person echogenic needle was advanced in plane until the tip was in the fascial plane between the internal oblique and the transverse abdominus. After negative aspiration 35 ml/side of [30 ml 0.5% Bupivacaine], [10 mg dexamethasone], dexmedetomidine 50 mcg and [40 ml sterile saline] was injected in 5 ml increments with negative aspiration in between. Patient tolerated procedure well. Jerson SHIPLEY
--- NOTE | 2020-10-27 21:42 | Progress Note ---
Spinal Anesthesia Block - Spinal Anesthesia Block Start Time: 19:47 Stop Time: 19:52 Performed by:: FOREIGN SHEN Procedure: Sitting, sterile chlorahexadine 0.5% prep/drape, 1% lidocaine skin local, 25G spinal needle + introducer at L3-4, + CSF, - Heme, [1.9 ml 0.5% bupivacaine + 10 mcg dexmedetomidine] injected, drape removed, patient positioned supine with left uterine displacement, and spinal level verified to be adequate prior to surgery. Jerson SHIPLEY
[2020-10-27] MEDS ORDERED: KETOROLAC 30 MG/1 ML INJ ONE (22:00)
[2020-10-27] MEDS ORDERED: PHENYLEPHRINE/NS 1,000 MCG/10 ML SYRINGE (OR USE) IV ONE (22:00)
[2020-10-27] MEDS ORDERED: ONDANSETRON 4 MG/2 ML INJ ONE (22:00)
[2020-10-28] MEDS: MORPHINE 4 MG/1 ML INJ IV PRN ×2 (00:12→07:16)
[2020-10-28] MEDS: KETOROLAC 30 MG/1 ML INJ IV SCH ×3 (04:44→18:48)
[2020-10-28 09:19] LABS: Hematocrit 22.8 % (30.3-42.9); Hemoglobin 7.9 gm/dl (10.1-14.3)
--- NOTE | 2020-10-28 12:15 | Progress Note ---
Assessment and Plan - Patient Problems (1) S/P Current Visit: Yes Status: Acute Plan to address problem: POD1 s/p pTLCS for concern for herpetic lesions. Doing well in the postoperative state. Still attempting to meet goals --Continue inpatient management. --Anticipate discharge in 24-48H. Subjective - Subjective Date of service: 10/28/20 Principal diagnosis: POD1 s/p c/s for concern for herpetic lesions Interval history: Patient doing well in the state. Overall doing well. Would like an abdominal binding to assist with ambulation. [place] out. Urinating spontaneously. Tolerating crackers. Baby doing well in the room. Mood good. Patient reports: appetite normal, voiding normally, pain well controlled, flatus [place]: doing well Objective - Vital Signs Latest vital signs: Vital Signs Temp Pulse Resp BP BP Pulse Ox 10/28/20 08:45 97.8 F 85 18 103/72 100 10/28/20 04:45 97.9 F 99 H 20 106/75 99 10/27/20 23:20 97.6 F 92 H 20 93/56 98 10/27/20 22:15 86 12 78/52 100 10/27/20 22:00 89 15 83/43 100 10/27/20 21:45 97 H 15 75/45 100 10/27/20 21:30 112 H 12 86/62 100 10/27/20 21:25 103 H 13 98/58 100 10/27/20 21:20 97.8 F 124 H 15 86/53 100 10/27/20 19:17 97.7 F 20 10/27/20 19:11 118 H 118/78 10/27/20 19:08 97.7 F 86 20 118/78 10/27/20 17:30 86 106/67 10/27/20 16:22 87 100 10/27/20 16:17 89 100 10/27/20 16:12 98 H 99 10/27/20 16:07 105 H 98 10/27/20 16:02 99 H 99 10/27/20 15:57 102 H 99 10/27/20 15:52 100 H 99 10/27/20 15:47 97 H 100 10/27/20 15:42 108 H 99 10/27/20 15:37 102 H 100 10/27/20 15:32 102 H 99 10/27/20 15:27 98 H 99 10/27/20 15:22 93 H 99 10/27/20 15:17 90 99 10/27/20 15:12 123 H 99 10/27/20 15:07 110 H 98 10/27/20 15:02 101 H 98 10/27/20 14:57 107 H 99 10/27/20 14:53 99 H 89 10/27/20 14:52 94 H 89 10/27/20 14:46 121 H 98 10/27/20 14:41 106 H 100 10/27/20 14:36 106 H 99 10/27/20 14:31 106 H 97 10/27/20 14:26 99 H 98 10/27/20 14:21 98 H 97 10/27/20 14:16 102 H 98 10/27/20 14:11 102 H 98 10/27/20 14:06 114 H 99 10/27/20 14:01 99 H 99 10/27/20 13:56 105 H 97 10/27/20 13:51 105 H 98 10/27/20 13:46 89 98 10/27/20 13:41 114 H 98 10/27/20 13:36 103 H 100 10/27/20 13:31 116 H 99 10/27/20 13:26 99 H 99 10/27/20 13:21 92 H 98 10/27/20 13:16 112 H 99 10/27/20 13:11 98.5 F 99 H 20 102/71 99 10/27/20 13:08 110 H 102/71 10/27/20 13:06 98 H 99 Intake and Output 10/27/20 10/28/20 10/28/20 23:59 07:59 15:59 Intake Total 3000 240 Output Total 300 Balance 2700 240 Intake: IV 3000 Oral 240 Output: Urine 300 Other: Total, Intake Amount 240 Voiding Method Indwelling Catheter - Exam Abdomen: Present: normal appearance, normal bowel sounds Uterus: Present: fundal height below umbilicus Incision: Present: normal, intact - Labs Labs: Abnormal lab results 10/27/20 10/28/20 Range/Units 17:00 09:10 WBC 11.3 H (4.5-11.0) K/mm3 Hgb 7.9 L (10.1-14.3) gm/dl Hct 22.8 L D (30.3-42.9) % RDW 15.3 H (13.2-15.2) %
[2020-10-28] MEDS: oxyCODONE /ACETAMINOPHEN 5-325MG TAB PO PRN ×2 (14:00→21:38)
[2020-10-28] MEDS: SIMETHICONE 80 MG CHEW TAB PO PRN (18:17)
[2020-10-28] MEDS: IBUPROFEN 800 MG TAB PO PRN (18:17)
[2020-10-28] MEDS: valACYclovir 500 MG TAB PO SCH ×2 (18:48→21:38)
--- NOTE | 2020-10-28 18:54 | Post Anesthesia Evaluation ---
- Post Anesthesia Evaluation Patient Participated: Yes Airway Patent: Yes Stable Respiratory Function: Yes Nausea/Vomiting: No Temp > 96.8F: Yes Pain Manageable: Yes Adequeate Hydration: Yes Anesthesia Complications: No Block Receding Appropriately: Yes
[2020-10-28] MEDS: MAGNESIUM HYDROXIDE (MOM) ORAL LIQD UDC PO PRN (21:38)
[2020-10-28] MEDS: SENNOSIDES 8.6 MG TAB PO PRN (21:39)
[2020-10-29] MEDS: SIMETHICONE 80 MG CHEW TAB PO PRN ×2 (00:12→09:27)
[2020-10-29] MEDS: IBUPROFEN 800 MG TAB PO PRN ×3 (00:12→18:48)
[2020-10-29] MEDS: oxyCODONE /ACETAMINOPHEN 5-325MG TAB PO PRN ×2 (09:28→17:14)
[2020-10-29] MEDS: valACYclovir 500 MG TAB PO SCH (09:28)
--- NOTE | 2020-10-29 15:46 | Progress Note ---
Assessment and Plan A: /postop day 2 S/P primary LTCS. Anemia. P: Oral iron supplementation. Stool softeners ordered. Encouraged ambulation. CBC, urinalysis. Subjective - Subjective Date of service: 10/29/20 Principal diagnosis: POD2 s/p c/s for concern for herpetic lesions Interval history: Tolerating regular diet, passing gas, voiding without difficulty, ambulating without assistance. Denies dizziness or weakness. Patient reports: appetite normal, voiding normally, pain well controlled, flatus, ambulating normally, no dizzy ambulation, no bowel movement, no nauseated [place]: doing well Objective - Vital Signs Latest vital signs: Vital Signs Temp Pulse Resp BP BP Pulse Ox 10/29/20 09:28 16 10/29/20 09:13 98.9 F 87 18 94/61 100 10/29/20 00:25 98.2 F 89 20 106/73 99 10/28/20 21:39 98.2 F 88 20 107/77 100 10/28/20 17:10 97.9 F 95 H 18 101/70 100 Intake and Output 10/28/20 10/29/20 10/29/20 23:59 07:59 15:59 Intake Total 1080 240 Output Total 1100 Balance -20 240 Intake: Oral 840 240 Intake, Free Water 240 Output: Urine 1100 Void 1100 Other: Total, Intake Amount 120 240 Total, Output Amount 400 # Voids Void 1 1 - Exam Lungs: Present: Clear to auscultation Abdomen: Present: normal appearance, soft, normal bowel sounds. Absent: distention, tenderness, guarding, rigidity Uterus: Present: normal, firm, fundal height below umbilicus. Absent: bogginess, tenderness Extremities: Present: normal. Absent: tenderness, edema Incision: Present: normal, dry, intact
[2020-10-29] MEDS: MAGNESIUM HYDROXIDE (MOM) ORAL LIQD UDC PO PRN (15:48)
[2020-10-29] MEDS: SENNOSIDES 8.6 MG TAB PO PRN (15:48)
[2020-10-29] MEDS ORDERED: LACTATED RINGERS 250 ML IV ONE (16:00)
[2020-10-29 19:18] LABS: Basophils % (Auto) 0.3 % (0.0-1.8); Eosinophils # (Auto) 0.1 K/mm3 (0.0-0.4); Hematocrit 22.2 % (30.3-42.9); Hemoglobin 7.5 gm/dl (10.1-14.3); Lymphocytes # (Auto) 2.2 K/mm3 (1.2-5.4); Lymphocytes % (Auto) 18.6 % (13.4-35.0); Mean Corpuscular HGB Conc 34 % (30-34); Mean Corpuscular Volume 87 fl (79-97); Monocytes # (Auto) 1.1 K/mm3 (0.0-0.8); Monocytes % (Auto) 9.5 % (0.0-7.3); Platelet Count 264 K/mm3 (140-440); Red Blood Count 2.56 M/mm3 (3.65-5.03); Red Cell Distribution Width 15.2 % (13.2-15.2)
[2020-10-29 21:28] LABS: Bilirubin,Urine NEG (Negative); Blood,Urine LG (Negative); Color,Urine Yellow (Yellow); Mucus,Urine FEW /HPF; Urobilinogen,Urine < 2.0 mg/dL (<2.0)
[2020-10-29 21:34] LABS: RBC,Urine > 182.0 /HPF (0.0-6.0)
[2020-10-29] MEDS: DOCUSATE SODIUM 100 MG CAP PO SCH ×2 (21:48→22:00)
[2020-10-29] MEDS: FERROUS SULFATE 325 MG TAB PO SCH (21:48)
[2020-10-29] MEDS ORDERED: cefTRIAXone/NS 1 GM/50 ML 1 GM/50 ML BAG IV SCH (22:00)
[2020-10-30] MEDS: oxyCODONE /ACETAMINOPHEN 5-325MG TAB PO PRN (00:01)
[2020-10-30 01:09] LABS: Bacteria,Urine 1+ /HPF (Negative); Bilirubin,Urine NEG (Negative); Blood,Urine MOD (Negative); Color,Urine Straw (Yellow); Mucus,Urine FEW /HPF; Protein,Urine <15 mg/dL mg/dL (Negative); Urobilinogen,Urine < 2.0 mg/dL (<2.0)
[2020-10-30] MEDS: IBUPROFEN 800 MG TAB PO PRN ×2 (01:22→10:27)
--- NOTE | 2020-10-30 06:40 | Progress Note ---
Assessment and Plan A: /postop day 3 S/P primary LTCS. Anemia. P: Plan to recheck H&H later today and if stable and VS remain stable, may discharge patient home later today. Discussed this plan with patient. Subjective - Subjective Date of service: 10/30/20 Principal diagnosis: POD3 s/p c/s for concern for herpetic lesions Interval history: Tolerating regular diet, passing gas, voiding without difficulty, ambulating without assistance. Denies dizziness or weakness or fatigue. States lower back pain has resolved. Reports scant amount of lochia. Patient desires discharge home today; agrees to take her iron supplements 3 jocelyne es per day at home. Patient reports: appetite normal, voiding normally, pain well controlled, flatus, ambulating normally, no dizzy ambulation, no bowel movement, no nause ated [place]: doing well Objective - Vital Signs Latest vital signs: Vital Signs Temp Pulse Resp BP Pulse Ox 10/30/20 01:22 20 10/30/20 00:33 98.4 F 99 H 18 103/67 99 10/30/20 00:01 20 10/29/20 18:48 16 10/29/20 17:48 98.8 F 105 H 18 99/72 100 10/29/20 17:14 18 10/29/20 09:28 16 10/29/20 09:13 98.9 F 87 18 94/61 100 Intake and Output 10/29/20 10/29/20 10/30/20 15:59 23:59 07:59 Intake Total 960 360 Balance 960 360 Intake: Oral 360 Intake, Free Water 600 360 Other: Total, Intake Amount 360 # Voids Indwelling Catheter 3 Void 2 - Exam Cardiovascular: Present: Regular rate Lungs: Present: Clear to auscultation Abdomen: Present: normal appearance, soft, normal bowel sounds. Absent: distention, tenderness, guarding, rigidity Uterus: Present: normal, firm, fundal height below umbilicus. Absent: bogginess, tenderness Extremities: Present: normal. Absent: tenderness, edema Incision: Present: normal, dry, intact - Labs Labs: Abnormal lab results 10/29/20 10/29/20 Range/Units 18:34 21:00 WBC 11.9 H (4.5-11.0) K/mm3 RBC 2.56 L (3.65-5.03) M/mm3 Hgb 7.5 L (10.1-14.3) gm/dl Hct 22.2 L (30.3-42.9) % Arthur % (Auto) 9.5 H (0.0-7.3) % Arthur # (Auto) 1.1 H (0.0-0.8) K/mm3 Seg Neutrophils % 70.6 H (40.0-70.0) % Seg Neutrophils # 8.4 H (1.8-7.7) K/mm3 Urine pH 8.0 H (5.0-7.0) Urine WBC (Auto) 121.0 H (0.0-6.0) /HPF
[2020-10-30] MEDS: FERROUS SULFATE 325 MG TAB PO SCH (09:32)
[2020-10-30] MEDS: DOCUSATE SODIUM 100 MG CAP PO SCH (09:32)
[2020-10-30] MEDS: SIMETHICONE 80 MG CHEW TAB PO PRN (09:32)
[2020-10-30 14:26] LABS: Basophils % (Auto) 0.2 % (0.0-1.8); Eosinophils # (Auto) 0.4 K/mm3 (0.0-0.4); Eosinophils % (Auto) 3.2 % (0.0-4.3); Hematocrit 21.6 % (30.3-42.9); Hemoglobin 7.5 gm/dl (10.1-14.3); Lymphocytes # (Auto) 1.8 K/mm3 (1.2-5.4); Lymphocytes % (Auto) 15.4 % (13.4-35.0); Mean Corpuscular HGB Conc 35 % (30-34); Mean Corpuscular Volume 86 fl (79-97); Monocytes % (Auto) 8.7 % (0.0-7.3); Platelet Count 267 K/mm3 (140-440); Red Blood Count 2.52 M/mm3 (3.65-5.03); Red Cell Distribution Width 15.4 % (13.2-15.2)
[2020-10-30 16:51] VITALS: BP 106/72
--- NOTE | 2020-11-09 09:42 | Discharge Summary ---
Providers - Providers Date of Admission: 10/27/20 19:54 Date of discharge: 10/30/20 Attending physician: BRIDGER GOMEZ MD Primary care physician: OBEY FELIX Hospitalization Delivery: Procedure: section Incision: normal complications: none, other (ANEMIA) Discharge diagnosis: IUP at term delivered baby: male Hospital course: BENIGN. Condition at discharge: Stable Disposition: - TO HOME OR SELFCARE Plan - Discharge Medications Prescriptions: Ibuprofen [Motrin 800 MG tab] 800 mg PO Q6H PRN #30 tablet PRN Reason: Pain, Moderate (4-6) oxyCODONE /ACETAMINOPHEN [Percocet 5/325 mg] 1 tab PO Q6H PRN #30 tablet PRN Reason: Pain, Moderate (4-6) - Provider Discharge Summary Additional instructions: [] Smoking cessation referral if applicable(refer to patient education folder for contact #) [] Refer to [facility] Booklet Call your doctor immediately for: * Fever > 100.5 * Heavy vaginal bleeding ( >1 pad per hour) * Severe persistent headache * Shortness of breath * Reddened, hot, painful area to leg or breast * Drainage or odor from incision. * Keep incision clean and dry at all times and follow doctor's instructions regarding bathing/showering - Follow up plan Follow up: OBEY FELIX MD [Primary Care Provider] - 7 Days
== END 2020-10-30 17:00 | disposition home or self-care (01) | DRG 765 ==
LOC: TRG 12:27 → APU 12:29 → LD 17:54 → TRG 19:53 → LD 19:54 → OB 23:10
PROVIDERS: ADMIT Obstetrics & Gynecology
PROC: 10D00Z1 Extraction of Products of Conception, Low, Open Approach (ICD-10-PCS; principal; 2020-10-27)
PROC: 3E0T3BZ Introduction of Anesthetic Agent into Peripheral Nerves and Plexi, Percutaneous Approach (ICD-10-PCS; 2020-10-28)
DX: O99.824 Streptococcus B carrier state complicating childbirth (principal); O98.32 Other infections with a predominantly sexual mode of transmission complicating childbirth; A60.04 Herpesviral vulvovaginitis; O90.81 Anemia of the puerperium; Z3A.40 40 weeks gestation of pregnancy; Z37.0 Single live birth; Z83.3 Family history of diabetes mellitus; Z82.49 Family history of ischemic heart disease and other diseases of the circulatory system; Z80.52 Family history of malignant neoplasm of bladder; Z20.822 Contact with and (suspected) exposure to COVID-19
CPT/HCPCS: 36415; 81001; 83036; 85014; 85018; 85025; 85027; 86592; 86706; 86762; 86803; 86850; 86900; 86901; 87086; 87806; 99211; G0378; G0463; J0696; J1885; J2270; J2370; J2405; J2765; J7120; U0003